=== PATIENT | male | born 1970 | race African-American/Black ===

== ENCOUNTER 2018-12-06 14:17 | Emergency (ER) | payer BC ==
[2018-12-06] MEDS ORDERED: ACETAMINOPHEN 500 MG TAB ONE (14:44)
[2018-12-06] MEDS ORDERED: NA CHLORIDE 0.9% 1,000 ML ONE (16:35)
[2018-12-06] MEDS ORDERED: ONDANSETRON 4 MG/2 ML VIAL ONE (16:35)
--- NOTE | 2018-12-06 16:36 | ER ---
Nurse's Notes [facility] Name: Efren Rivera II Age: 48 yrs Sex: Male : 1970 Arrival Date: 12/06/2018 Time: 14:18 Bed 14 Private MD: Teodoro Menard R Diagnosis: Vomiting, unspecified;Diarrhea, unspecified;Volume depletion Presentation: 12/06 14:26 Presenting complaint: Patient states: I have been having fever, body aches, nausea, and la1 diarrhea for the last 2 days. Transition of care: patient was not received from another setting of care. Onset of symptoms was December 06, 2018. Risk Assessment: Do you want to hurt yourself or someone else? Patient reports no desire to harm self or others. Initial Sepsis Screen: Does the patient meet any 2 criteria? No. Patient's initial sepsis screen is negative. Does the patient have a suspected source of infection? No. Patient's initial sepsis screen is negative. Care prior to arrival: None. 14:26 Method Of Arrival: Ambulatory la1 14:26 Acuity: NATALIE 4 la1 Triage Assessment: 15:40 GI: Reports diarrhea, tolerance of fluids, tolerance of food, vomiting. sg Historical: - Allergies: 14:27 No Known Allergies; la1 - PMHx: 14:27 None; la1 - Immunization history:: Adult Immunizations up to date. - Social history:: Smoking status: Patient uses tobacco products, denies chronic smoking, but will smoke occasionally. - Ebola Screening: : No symptoms or risks identified at this time. Assessment: 15:40 Reassessment: Patient appears in no apparent distress at this time. Patient and/or sg family updated on plan of care and expected duration. Pain level reassessed. Patient is alert, oriented x 3, equal unlabored respirations, skin warm/dry/pink. 16:40 General: Appears in no apparent distress. comfortable, well groomed, well developed, sg well nourished, Behavior is calm, cooperative, appropriate for age. Neuro: Level of Consciousness is awake, alert, obeys commands, Oriented to person, place, time, situation, Speech is normal, Facial symmetry appears normal, Pupils are PERRLA. Cardiovascular: Capillary refill is brisk in bilateral fingers Patient's skin is warm and dry. Chest pain is denied. Respiratory: Airway is patent Respiratory effort is even, unlabored, Respiratory pattern is regular, symmetrical. GI: Abdomen is round non-distended, Bowel sounds present X 4 quads. Reports diarrhea, nausea, tolerance of fluids, tolerance of food. : No signs and/or symptoms were reported regarding the genitourinary system. EENT: No signs and/or symptoms were reported regarding the EENT system. Derm: Skin is pink, warm \T\ dry. Musculoskeletal: No signs and/or symptoms reported regarding the musculoskeletal system. Vital Signs: 14:27 BP 125 / 77; Pulse 117; Resp 18; Temp 101.8; Pulse Ox 98% on R/A; Weight 124.28 kg; la1 Height 6 ft. 4 in. (193.04 cm); 15:20 BP 122 / 70; Pulse 92; Resp 17 S; Temp 99.2(O); Pulse Ox 98% on R/A; sg 14:27 Body Mass Index 33.35 (124.28 kg, 193.04 cm) la1 ED Course: 14:18 Patient arrived in ED. rg4 14:19 Teodoro Menard MD is Private Physician. rg4 14:26 Triage completed. la1 14:27 Arm band placed on left wrist. la1 15:11 Hoda Paul [facility]C [facility]. snw 15:11 Yazan Stringer MD is Attending Physician. snw 15:15 Patient has correct armband on for positive identification. Bed in low position. Call sg light in reach. Side rails up X2. Pulse ox on. NIBP on. Warm blanket given. Head of bed elevated. 15:18 Germán Starks, LUIS is Primary Nurse. sg 16:35 Teodoro Menard MD is Referral Physician. snw 16:40 No provider procedures requiring assistance completed. Patient did not have IV access sg during this emergency room visit. intact, bleeding controlled, No redness/swelling at site. Pressure dressing applied. Administered Medications: 14:31 Drug: Tylenol 1000 mg Route: PO; la1 15:35 Follow up: Response: No adverse reaction; Temperature is increased sg 16:37 Drug: Zofran 4 mg Route: PO; sg 16:44 Not Given (Patient Refused): NS 0.9% 1000 ml IV at 1 bolus Per protocol; 1000 mL bolus sg 16:44 Not Given (Patient Refused): Zofran 4 mg IVP once; over 2 minutes sg Outcome: 16:40 Discharged to home ambulatory. sg 16:40 Condition: good 16:40 Discharge instructions given to patient, Instructed on discharge instructions, follow up and referral plans. medication usage, safety practices, Demonstrated understanding of instructions, follow-up care, medications. 16:40 AMA AMA form signed sg 16:40 Condition: good 16:43 Patient left the ED. sg Signatures: Germán Starks, RN RN sg Hoda Paul, PLANNER CHIEF-C PLANNER CHIEF-Csnw Conrad Covarrubias RN RN laSuzan Spears rg4 Corrections: (The following items were deleted from the chart) 16:48 16:40 GI: Abdomen is round non-distended, Bowel sounds present X 4 quads. sg sg
--- NOTE | 2018-12-06 16:36 | EDPHYS ---
Physician Documentation [facility] Name: Efren Rivera II Age: 48 yrs Sex: Male : 1970 Arrival Date: 12/06/2018 Time: 14:18 Bed 14 Private MD: Teodoro Menard R ED Physician Yazan Stringer HPI: 12/06 19:11 This 48 yrs old Black Male presents to ER via Ambulatory with complaints of snw Vomiting/Diarrhea, Dizziness, Body Aches. 19:11 The patient presents to the emergency department with nausea, vomiting, diarrhea. snw Onset: The symptoms/episode began/occurred suddenly, 2 day(s) ago, and became persistent. Possible causes: unknown. The symptoms are aggravated by food . Associated signs and symptoms: Pertinent positives: diarrhea, nausea, vomiting, severe bodyaches. Severity of symptoms: At their worst the symptoms were moderate in the emergency department the symptoms are unchanged. It is unknown whether or not the patient has had similar symptoms in the past. The patient has not recently seen a physician. Historical: - Allergies: 14:27 No Known Allergies; la1 - PMHx: 14:27 None; la1 - Immunization history:: Adult Immunizations up to date. - Social history:: Smoking status: Patient uses tobacco products, denies chronic smoking, but will smoke occasionally. - Ebola Screening: : No symptoms or risks identified at this time. ROS: 19:08 Constitutional: Positive for subjective fever, chills, and bodyaches. Eyes: Negative snw for injury, pain, redness, and discharge, ENT: Negative for injury, pain, and discharge, Neck: Negative for injury, pain, and swelling, Cardiovascular: Negative for chest pain, palpitations, and edema, Respiratory: Negative for shortness of breath, cough, wheezing, and pleuritic chest pain, Back: Negative for injury and pain, : Negative for injury, bleeding, discharge, and swelling, MS/Extremity: Negative for injury and deformity, Skin: Negative for injury, rash, and discoloration, Neuro: Negative for headache, weakness, numbness, tingling, and seizure. 19:08 Abdomen/GI: Positive for nausea, vomiting, and diarrhea. Exam: 19:08 Constitutional: This is a well developed, well nourished patient who is awake, alert, snw and in no acute distress. Head/Face: Normocephalic, atraumatic. Eyes: Pupils equal round and reactive to light, extra-ocular motions intact. Lids and lashes normal. Conjunctiva and sclera are non-icteric and not injected. Cornea within normal limits. Periorbital areas with no swelling, redness, or edema. ENT: Nares patent. No nasal discharge, no septal abnormalities noted. Tympanic membranes are normal and external auditory canals are clear. Oropharynx with no redness, swelling, or masses, exudates, or evidence of obstruction, uvula midline. Mucous membranes moist. Neck: Trachea midline, no thyromegaly or masses palpated, and no cervical lymphadenopathy. Supple, full range of motion without nuchal rigidity, or vertebral point tenderness. No Meningismus. Chest/axilla: Normal chest wall appearance and motion. Nontender with no deformity. No lesions are appreciated. Cardiovascular: Regular rate and rhythm with a normal S1 and S2. No gallops, murmurs, or rubs. Normal PMI, no JVD. No pulse deficits. Respiratory: Lungs have equal breath sounds bilaterally, clear to auscultation and percussion. No rales, rhonchi or wheezes noted. No increased work of breathing, no retractions or nasal flaring. Abdomen/GI: Soft, non-tender, with normal bowel sounds. No distension or tympany. No guarding or rebound. No evidence of tenderness throughout. Back: No spinal tenderness. No costovertebral tenderness. Full range of motion. Skin: Warm, dry with normal turgor. Normal color with no rashes, no lesions, and no evidence of cellulitis. MS/ Extremity: Pulses equal, no cyanosis. Neurovascular intact. Full, normal range of motion. Neuro: Awake and alert, GCS 15, oriented to person, place, time, and situation. Cranial nerves II-XII grossly intact. Motor strength 5/5 in all extremities. Sensory grossly intact. Cerebellar exam normal. Normal gait. Vital Signs: 14:27 BP 125 / 77; Pulse 117; Resp 18; Temp 101.8; Pulse Ox 98% on R/A; Weight 124.28 kg; la1 Height 6 ft. 4 in. (193.04 cm); 15:20 BP 122 / 70; Pulse 92; Resp 17 S; Temp 99.2(O); Pulse Ox 98% on R/A; sg 14:27 Body Mass Index 33.35 (124.28 kg, 193.04 cm) la1 MDM: 15:20 Patient medically screened. snw 19:07 Data reviewed: vital signs, nurses notes. Data interpreted: Pulse oximetry: on room air snw is 98 %. Interpretation: normal. Counseling: I had a detailed discussion with the patient and/or guardian regarding: the historical points, exam findings, and any diagnostic results supporting the discharge/admit diagnosis, the need for outpatient follow up, to return to the emergency department if symptoms worsen or persist or if there are any questions or concerns that arise at home. Refusal of service: The patient/guardian displays adequate decision making capability and despite a detailed discussion of alternatives, benefits, risks, and consequences refuses: all lab tests, IVF. 12/06 14:27 Order name: Flu; Complete Time: 15:16 la1 12/06 16:14 Order name: Labs collected and sent; Complete Time: 16:21 snw Administered Medications: 14:31 Drug: Tylenol 1000 mg Route: PO; la1 15:35 Follow up: Response: No adverse reaction; Temperature is increased sg 16:37 Drug: Zofran 4 mg Route: PO; sg 16:44 Not Given (Patient Refused): NS 0.9% 1000 ml IV at 1 bolus Per protocol; 1000 mL bolus sg 16:44 Not Given (Patient Refused): Zofran 4 mg IVP once; over 2 minutes sg Disposition: 12/06/18 16:36 Patient has left against medical advice. Impression: Vomiting, unspecified, Diarrhea, unspecified, Volume depletion. - Patients states they are going to Home. - Condition is Stable. - Discharge Instructions: Food Choices to Help Relieve Diarrhea, Adult, Diarrhea, Adult, Nausea and Vomiting, Adult, Rehydration, Adult. - Prescriptions for Zofran 4 mg Oral Tablet - take 1 tablet by ORAL route every 12 hours As needed; 20 tablet. Work release form form. Follow up: Teodoro Menard MD; When: 2 - 3 days; Reason: Recheck today's complaints, Continuance of care, Re-evaluation by your physician. Follow up: Emergency Department; When: As needed; Reason: Worsening of condition. - Problem is new. - Symptoms are unchanged. Addendum: 12/08/2018 08:08 Co-signature as Attending Physician, Yazan Stringer MD I agree with the assessment and k dr plan of care. Signatures: Dispatcher [employer] Germán Medina, RN RN Yazan Espana MD MD [facility] Hoda Paul, MANAGER LSW-C MANAGER LSW-Csnw Conrad Covarrubias RN RN la1 Corrections: (The following items were deleted from the chart) 12/06 16:43 16:36 12/06/2018 16:36 Patients has left against medical advice. Impression: Vomiting, sg unspecified; Diarrhea, unspecified; Volume depletion. Patient states they are going to Home. Condition is Stable. Follow up: Teodoro Menard; When: 2 - 3 days; Reason: Recheck today's complaints, Continuance of care, Re-evaluation by your physician. Follow up: Emergency Department; When: As needed; Reason: Worsening of condition. Problem is new. Symptoms are unchanged. snw
[2018-12-06] MEDS ORDERED: ONDANSETRON 4 MG (ODT) TAB ONE (16:46)
[2018-12-06 17:07] VITALS: O2SAT 98
[2018-12-06 17:08] VITALS: BP 122/70; TEMP 99.2
== END 2018-12-06 16:43 | disposition left against medical advice (07) ==
LOC: ER 14:17
DX: R11.2 Nausea with vomiting, unspecified (principal); R19.7 Diarrhea, unspecified; E86.9 Volume depletion, unspecified; Z72.0 Tobacco use
CPT/HCPCS: 87804; 99283; J2405; J7030